=== PATIENT | female | born 1975 ===

== ENCOUNTER 2018-01-06 20:15 | Emergency (ER) | payer MEDICAID ==
[2018-01-06 20:15] VITALS: BMI 28.3
--- NOTE | 2018-01-06 20:44 | C.PDOC ---
History Of Present Illness Patient seen tonite due to left sided chest pain, on and off and increased by movement. Chief Complaint (Nursing): Chest Pain Past Medical History Vital Signs: Last Vital Signs Temp 97.7 F 01/06/18 20:31 Pulse 79 01/06/18 20:31 Resp 18 01/06/18 20:31 BP 109/70 01/06/18 20:31 Pulse Ox 100 01/06/18 20:31 - Medical History PMH: Anemia, Anxiety, Back Problems, Bipolar Disorder, Depression, Hepatitis (received tx.), HTN, Seizures Denies: Diabetes, HIV, Chronic Kidney Disease, Sexually Transmitted Disease Surgical History: No Surg Hx - [facility] DETOXIFICATION SERVICES FOR SUBSTANCE ABUSE TREATMENT (11/13/15) INDIVIDUAL PSYCHOTHERAPY, SUPPORTIVE (11/13/15) Family History: States: Unknown Family Hx - Social History Hx Alcohol Use: Yes Hx Substance Use: Yes (cocaine, heroine) - Immunization History Hx Tetanus Toxoid Vaccination: No Hx Influenza Vaccination: No Hx Pneumococcal Vaccination: No Review Of Systems Constitutional: Negative for: Fever, Chills, Sweats Eyes: Negative for: Pain ENT: Negative for: Ear Pain, Ear Discharge, Nose Pain, Nose Discharge Cardiovascular: Positive for: Chest Pain. Negative for: Palpitations, Orthopnea, Paroxysmal Noc. Dyspnea, Edema, Light Headedness Respiratory: Negative for: Cough, Shortness of Breath, Hemoptysis, SOB with Excertion, Pleuritic Pain, Sputum Gastrointestinal: Negative for: Nausea, Vomiting, Abdominal Pain, Constipation, Melena, Hematochezia Genitourinary: Negative for: Dysuria Musculoskeletal: Negative for: Neck Pain, Shoulder Pain, Arm Pain, Back Pain, Hand Pain Skin: Negative for: Rash Neurological: Negative for: Weakness, Numbness, Incoordination, Confusion Physical Exam - Physical Exam Appears: Well, Non-toxic, Toxic Skin: Normal Color Head: Atraumatic Eye(s): bilateral: Normal Inspection, PERRL, EOMI Nose: Normal Throat: Normal Neck: Normal Chest: Other (tenderness left anterior chest wall) Cardiovascular: Rhythm Regular, No Edema, No Friction Rub, No Murmur, No JVD Respiratory: Normal Breath Sounds Gastrointestinal/Abdominal: Normal Exam Back: Normal Inspection Extremity: Normal ROM ED Course And Treatment - Laboratory Results Result Diagrams: 01/06/18 20:50 01/06/18 20:50 ECG: Interpreted By Me, Viewed By Me ECG Rhythm: Sinus Rhythm ECG Interpretation: Normal, No Acute Changes, Abnormal Interpretation Of ECG: NSR, no acute change,prolonged QT interval Rate From EC O2 Sat by Pulse Oximetry: 100 Pulse Ox Interpretation: Normal - CT Scan/US CT Chest Other Rad Studies (CT/US): Read By Radiologist, Radiology Report Reviewed CT/US Interpretation: Name:NANCY DAVENPORT Exam Date:Jan 07, 2018 1:08:50 AM EST. Modality Type:CT\SR. Descript ion:CT - CHEST. Gender:F Laterality:Not applicable. :75 Referring Physician:HECTOR HAGER MD CT SCAN OF THE CHEST WITHOUT IV CONTRAST. CLINICAL INDICATION: Chest pain, elevated d-dimer. TECHNIQUE: Axial and reformatted sagittal and coronal images of the chest obtained without IV contrast administration. FINDINGS: Normal unenhanced main pulmonary artery and right and left pulmonary arteries. Normal bilateral peripheral pulmonary arteries. Minimal left pleural effusion. Passive atelectatic airspace disease of the left lower lobe. Subsegmental atelectatic airspace disease in the lingula. Bilateral multifocal groundglass densities of the lungs. Normal thoracic aorta and visualized great vessels. There is no demonstrated aortic aneurysm. Moderately enlarged heart and normal pericardium. Normal mediastinum. Normal hilar regions. Normal visualized trachea and thickened bronchi. The remaining lungs are well expanded. Normal chest wall structures. Normal osseous st ructures. Moderate amount of fecal residue is noted in the large bowel. IMPRESSION: Bilateral multifocal airspace disease of the lungs, probably infectious/inflammatory pathology. Moderate thyromegaly. Mild central pulmonary venous congestion. Minimal left pleural effusion. Disposition Counseled Patient/Family Regarding: Diagnosis - Disposition Referrals: [facility] [Outside] Disposition: HOME/ ROUTINE Disposition Time: 02:37 Condition: STABLE Prescriptions: Azithromycin [Zithromax] 500 mg PO DAILY #10 tablet Naproxen 375 mg PO TIDPC #14 tablet Instructions: Bacterial Upper Respiratory Infection, Adult, Chest Pain Forms: [facility] ([place]) - POA Present On Arrival: None - Clinical Impression Clinical Impression: Chest pain, Upper respiratory infection
[2018-01-06 20:54] LABS: BASO % 0.6 % (0.0-2.0); EOS # 0.2 K/uL (0.0-0.7); EOS % 4.3 % (0.0-4.0); HEMOGLOBIN 10.4 g/dL (11.0-16.0); MEAN CELL VOLUME 80.9 fL (81.0-99.0); MEAN CORPUSCULAR HEMOGLOBIN 26.7 pg (27.0-31.0); MEAN PLATELET VOLUME 8.3 fL (7.2-11.7); MONO # 0.4 K/uL (0.0-0.8); MONO % 6.8 % (0.0-10.0); NEUT # 2.7 K/uL (1.8-7.0); NEUT % 51.3 % (50.0-75.0); RBC 3.9 Mil/uL (3.80-5.20); RED CELL DISTRIBUTION WIDTH 14.5 % (11.5-14.5); WHITE BLOOD COUNT 5.3 K/uL (4.8-10.8)
[2018-01-06 21:11] LABS: BLOOD UREA NITROGEN 22 mg/dL (7-17); GFR NON-AFRICAN AMERICAN > 60
[2018-01-06 21:18] LABS: ALB/GLOB RATIO 1.2 (1.0-2.1); ALBUMIN 4.4 g/dL (3.5-5.0); ALT/SGPT 22 U/L (9-52); AST/SGOT 52 U/L (14-36)
[2018-01-06 22:37] LABS: BARBITURATES, UR NEGATIVE (NEGATIVE); PHENCYCLIDINE, UR NEGATIVE (NEGATIVE)
[2018-01-06 22:38] LABS: BENZODIAZEPINES, UR POSITIVE (NEGATIVE); OPIATES, UR POSITIVE (NEGATIVE)
[2018-01-07 03:00] VITALS: O2SAT 99
[2018-01-07 06:39] VITALS: BP 108/74; PULSE 62; RESP 14; TEMP 98.4
--- NOTE | 2018-01-07 09:23 | CT ---
Date of service: 01/07/2018 PROCEDURE: CT Chest without contrast HISTORY: DDimer COMPARISON: None available. TECHNIQUE: Contiguous axial images were obtained through the chest without intravenous contrast enhancement. Sagittal and coronal reconstructions were performed. Radiation dose: Total exam DLP = 224.85 mGy-cm. This CT exam was performed using one or more of the following dose reduction techniques: Automated exposure control, adjustment of the mA and/or kV according to patient size, and/or use of iterative reconstruction technique. FINDINGS: LUNGS: There are patchy ground-glass opacities in the lungs. Small airspace consolidation noted at the lingula. MEDIASTINUM: Unr the ascending thoracic aorta is mildly ectatic.. The heart is mildly enlarged. The main pulmonary artery is mildly to moderately enlarged. No lymphadenopathy. No aortic atherosclerotic calcification. PLEURA: Questionable trace left pleural effusion. BONES: No fracture. No destructive lesion. UPPER ABDOMEN: The scan through the upper abdomen demonstrate hepato splenomegaly. OTHER FINDINGS: None. IMPRESSION: Questionable left pleural effusion. No evidence of pneumothorax. Patchy ground-glass opacities in the lungs noted. Findings are nonspecific and the possibility of pneumonitis or less likely infectious process should be considered. Mild cardiomegaly. Mildly enlarged main pulmonary artery. Preliminary report was submitted by [facility] contains concordant findings.
--- NOTE | 2018-01-07 11:35 | RAD ---
Date of service: 01/06/2018 HISTORY: chest pain COMPARISON: No prior. TECHNIQUE: Chest PA and lateral FINDINGS: LUNGS: Possible small opacity or infiltrate at the left lower lung. PLEURA: No significant pleural effusion identified. No pneumothorax apparent. CARDIOVASCULAR: No aortic atherosclerotic calcification present. Normal cardiac size. No pulmonary vascular congestion. OSSEOUS STRUCTURES: No significant abnormalities. VISUALIZED UPPER ABDOMEN: Normal. OTHER FINDINGS: None. IMPRESSION: Possible small opacity or infiltrate at the left lower lung.
--- NOTE | 2018-01-11 19:50 | CARD ---
APPROVED REPORT Date of service: 01/06/2018 EKG Measurement Heart [id number] <Conclusion> Normal sinus rhythm Prolonged QT Abnormal ECG
== END 2018-01-07 06:38 | disposition home or self-care (01) ==
LOC: C.ER 20:15
DX: R07.9 Chest pain, unspecified (principal); J06.9 Acute upper respiratory infection, unspecified; I10 Essential (primary) hypertension
CPT/HCPCS: 71046; 71250; 80053; 80324; 80345; 80346; 80349; 80353; 80358; 80361; 83992; 84484; 85025; 85378; 96374; 99285; J1885